=== PATIENT | female | born 1955 | race African-American/Black ===

== ENCOUNTER → 2016-08-10 | Outpatient (CLI) | payer MEDICARE, MEDICAID ==
[~2016-08-10] MED LIST: ALPRAZOLAM0.5 MG PO; BACLOFEN10 MG ORAL; DEPAKENE250 MG/5 M PO; NEURONTIN300 MG ORAL; ZOLOFT20 MG/1 ML ORAL; ZOLOFT50 MG ORAL
--- NOTE | 2016-08-10 16:43 | Diagnostic Imaging Report ---
Indication: SCREEN Technique: Bilateral Craniocaudal and mediolateral oblique views were obtained. Comparison: None. Prior mammograms were taken over 10 years ago, have been purged in the interim. This will therefore serve as a new baseline mammogram Findings: The breasts demonstrate scattered fibroglandular densities. No parenchymal asymmetry nor architectural distortion. There is a cluster of pleomorphic calcifications in the left breast at about the 2:00 position . There is a 5 mm asymmetry in the outer right breast on the craniocaudal view, not definitely visualized on the oblique view although possibly in the upper breast. No skin thickening nor nipple retraction. No axillary adenopathy. . Impression: 2:00 calcifications left breast. Further evaluation with magnification mammography recommended. Note that it is possible that these are dermal calcifications, so tangential view should also be obtained. Outer right breast asymmetry, definitely seen only on the craniocaudal view. Further evaluation with spot compression mammography and ultrasound recommended BI-RADS category zero-needs additional imaging evaluation.
== END | disposition home or self-care (01) ==
LOC: MAMMO 13:04
DX: Z12.31 Encounter for screening mammogram for malignant neoplasm of breast (principal); N64.89 Other specified disorders of breast; N63 Unspecified lump in breast
CPT/HCPCS: 77067

== ENCOUNTER 2018-05-21 13:09 | Outpatient (CLI) | payer MEDICARE ==
[~2018-05-21] VITALS: Ht 162.6 cm; Wt 82.6 kg
[2018-05-22] MEDS ORDERED: CELEBREX200 MG ORAL (13:45)
--- NOTE | 2018-05-22 13:51 | Consultation ---
DATE OF CONSULTATION: 05/21/2018 CONSULTING PHYSICIAN: Jonnie Sanchez M.D. CHIEF COMPLAINT: Screening colonoscopy evaluation. PAST MEDICAL HISTORY: 1. GERD. 2. Depression. 3. IBS. 4. Hemorrhoids. PAST SURGICAL HISTORY: None. MEDICATIONS: Cymbalta, Celebrex. FAMILY HISTORY: Mother had breast cancer. SOCIAL HISTORY: The patient denies any tobacco, alcohol, or drug abuse. ALLERGIES: No known drug allergy. PHYSICAL EXAMINATION: VITAL SIGNS: Temperature 97.6, blood pressure is 120/79, pulse is 84, respirations 20. HEENT: Normocephalic and atraumatic. Sclerae anicteric. NECK: Supple. No obvious evidence of lymphadenopathy. CARDIOVASCULAR: Regular rhythm. Plus S1 and S2. LUNGS: Clear to auscultation bilaterally. ABDOMEN: Positive bowel sounds. Soft and nontender. No rebound. No guarding. No peritoneal sign. EXTREMITIES: No cyanosis, no clubbing, and no edema. ASSESSMENT AND PLAN: Pleasant 62-year-old female, who was referred for screening colonoscopy. We will plan for next week. The patient was given instructions and prep for colonoscopy. The risks and benefits of the procedure were explained to the patient and she agreed, so we will plan for colonoscopy next week. I want to thank Dr. Shekhar Nam for this kind referral. Jonnie Sanchez M.D. DR: TRINA JOB#: [id number] CC: Shekhar Nam M.D.; Fax#: [phone]
== END 2018-05-21 15:09 | disposition home or self-care (01) ==
LOC: PAN 13:09
DX: K21.9 Gastro-esophageal reflux disease without esophagitis (principal); F32.9 Major depressive disorder, single episode, unspecified; K58.9 Irritable bowel syndrome, unspecified
CPT/HCPCS: 99202

== ENCOUNTER 2018-05-30 09:09 | Day surgery (SDC) | payer MEDICARE ==
[~2018-05-30] VITALS: Ht 167.6 cm; Wt 83.0 kg
[2018-05-30] VITALS (8 sets, daily range): BP systolic 104–136; BP diastolic 61–83
[~2018-05-30 09:09] MED LIST changes: +CELEBREX200 MG ORAL
[2018-05-30] MEDS ORDERED: GABAPENTIN600 MG ORAL (10:06)
[2018-05-30] MEDS ORDERED: CELEBREX200 MG ORAL (10:06)
[2018-05-30] MEDS ORDERED: CYMBALTA30 MG ORAL (10:06)
--- NOTE | 2018-05-30 10:58 | Pre-Procedure Note/Attestation ---
Pre-Procedure Note/Attestation Complete Prior to Procedure Planned Procedure: not applicable Procedure Narrative: colonoscopy Indications for Procedure Pre-Operative Diagnosis: screening Attestation I attest that I discussed the nature of the procedure; its benefits; risks and complications; and alternatives (and the risks and benefits of such alternatives ), prior to the procedure, with the patient (or the patient's legal contracts representative). I attest that, if there was a reasonable possibility of needing a blood transfusion, the patient (or the patient's legal contracts representative) was given the [facility] standardized written summary, pursuant to the [place] Blood Safety Act ([place] Health and Safety Code # 1645, as amended). I attest that I re-evaluated the patient just prior to the surgery and that there has been no change in the patient's H&P, except as documented below: Jonnie Sanchez MD May 30, 2018 10:58
[2018-05-30] MEDS ORDERED: Lidocaine 1% MPF 10mg/ml 5ml ONE (11:00)
[2018-05-30] MEDS ORDERED: Propofol 200mg/20ml IV ONE (11:00)
--- NOTE | 2018-05-30 11:08 | Anethesia Preoperative Eval ---
Anesthesia Pre-op PMH/ROS General Date of Evaluation: May 30, 2018 Time of Evaluation: 11:06 Anesthesiologist: Suzette Vee CRNA ASA Score: ASA 2 Mallampati Score Class I : Soft palate, uvula, fauces, pillars visible Class II: Soft palate, uvula, fauces visible Class III: Soft palate, base of uvula visible Class IV: Only hard plate visible Mallampati Classification: Class II Surgeon: Daniel Diagnosis: Colon screening Surgical Procedure: EGD, colonoscopy Anesthesia History: none Family History: no anesthesia problems Allergies: Coded Allergies: NO KNOWN ALLERGIES (Unverified Allergy, Unknown, 02/05/15) Medications: see eMAR Patient NPO?: Yes NPO Date: May 30, 2018 NPO Time: 00:00 Past Medical History Cardiovascular: Denies: HTN, CAD, [place], valve dz, arrhythmia, other Pulmonary: Denies: asthma, COPD, NIMA, other Gastrointestinal/Genitourinary: Denies: GERD, CRI, ESRD, other Neurologic/Psychiatric: Reports: other - chronic pain; Denies: dementia, CVA, depression/anxiety, TIA Endocrine: Denies: DM, hypothyroidism, steroids, other HEENT: Denies: cataract (L), cataract (R), glaucoma, QAWALANGIN (L), QAWALANGIN (R), other Hematology/Immune: Denies: anemia, DVT, bleeding disorder, other Musculoskeletal/Integumentary: Reports: DDD, other - Cervical and lumbar spondylosis, herniated nucleus polposis; Denies: OA, RA, DJD, edema Other: obesity PMH Narrative: as noted above PSxH Narrative: none Anesthesia Pre-op Phys. Exam Physician Exam Last Vital Signs Date Time Temp Pulse Resp B/P (MAP) Pulse Ox O2 Delivery O2 Flow Rate FiO2 05/30/18 10:10 Room Air 05/30/18 10:00 98.1 68 20 136/83 96 Constitutional: NAD Neurologic: CN 2-12 intact Cardiovascular: RRR Respiratory: CTA Gastrointestinal: S/NT/ND Airway Exam Mallampati Score: Class II MO: full Neck: FROM TMD: > 3FB ROM: full Teeth: intact Dentures: no upper, no lower Anesthesia Pre-op A/P Studies Pre-op Studies: EKG - NSR, low voltage, possible infarct Risk Assessment & Plan Assessment: ASA 2, ok to proceed Plan: MAC Status Change Before Surgery: No Pre-Antibiotics Given Within 1 Hr of Incision: No Suzette Vee CRNA May 30, 2018 11:08
[2018-05-30] MEDS ORDERED: fentaNYL 100 mcg/2 mL IV ONE (11:13)
--- NOTE | 2018-05-30 11:14 | Short Stay Surgery H&P ---
History of Present Illness History of Present Illness Chief Complaint see recent office note HPI Maryan Cooper is a 63 year old female who was admitted on for Colon Screening Patient History Allergies: Coded Allergies: NO KNOWN ALLERGIES (Unverified Allergy, Unknown, 02/05/15) Medication History Scheduled Celecoxib* (Celebrex*), 200 MG ORAL DAILY, (Reported) Duloxetine Hcl* (Cymbalta*), 90 MG ORAL DAILY, (Reported) Gabapentin (Neurontin), 300 MG ORAL THREE TIMES A DAY Physical Exam Vital Signs Last Vital Signs Date Time Temp Pulse Resp B/P (MAP) Pulse Ox O2 Delivery O2 Flow Rate FiO2 05/30/18 10:10 Room Air 05/30/18 10:00 98.1 68 20 136/83 96 Plan Attestation Are the patient's medical conditions optimized for surgery? Jonnie Sanchez MD May 30, 2018 11:14
--- NOTE | 2018-05-30 11:42 | Endoscopy Procedure Note ---
Endoscopy Procedure Note General Indication for Procedure: screning colon, GERD Procedures Performed: EGD, colonoscopy Operative Findings/Diagnosis: gastritis, hemorrhoids Specimen: yes Pt Tolerated Procedure Well: Yes Estimated Blood Loss: none Anesthesia Anesthesiologist: pancho Anesthesia: MAC Inserted Devices Implant(s) used?: No Quality Quality of Bowel Preparation: Good Did scope reach the cecum?: Yes Was there any complications?: No GI Core Measures 50 yrs or older w/o bx or poly: No 10yrs. F/U not recommended: Yes If not recommended, why?: Above average risk 10 yrs. F/U needed: Yes 18 years or older w/prev. colo: Yes <3yrs. since last colonoscopy: No Jonnie Sanchez MD May 30, 2018 11:42
--- NOTE | 2018-05-30 11:57 | Immediate Post-Op Evaluation ---
Immediate Post-Op Evalulation Immediate Post-Op Evalulation Procedure: EGD and colonoscopy screening Date of Evaluation: May 30, 2018 Time of Evaluation: 11:47 IV Fluids: 0.9 NS 500 ml Blood Pressure Systolic: 112 Blood Pressure Diastolic: 75 Pulse Rate: 75 Respiratory Rate: 19 O2 Sat by Pulse Oximetry: 100 Temperature (Fahrenheit): 97.0 Pain Score (1-10): 0 Nausea: No Vomiting: No Complications none Patient Status: awake, reacts, patent Hydration Status: adequate Given Within 1 Hr of Incision: Suzette Case CRNA May 30, 2018 11:57
--- NOTE | 2018-05-30 12:06 | 48 Hour Post Anesthesia Eval ---
Post Anesthesia Evaluation Procedure: EGD and colonoscopy screening Date of Evaluation: May 30, 2018 Time of Evaluation: 12:05 Blood Pressure Systolic: 135 0: 78 Pulse Rate: 73 Respiratory Rate: 16 Temperature (Fahrenheit): 97.0 O2 Sat by Pulse Oximetry: 100 Airway: patent Nausea: No Vomiting: No Pain Intensity: 0 Hydration Status: adequate Cardiopulmonary Status: stable Mental Status/LOC: patient returned to baseline Follow-up Care/Observations: per GI Post-Anesthesia Complications: none Suzette Vee CRNA May 30, 2018 12:06
--- NOTE | 2018-05-30 17:45 | Procedure Note ---
DATE OF PROCEDURE: 05/30/2018 SURGEON: Jonnie Sanchez M.D. REFERRING PHYSICIAN: Shekhar Nam M.D. PROCEDURE: Upper endoscopy with biopsy and colonoscopy. ANESTHESIA: Per Suzette, nurse anesthetic. INSTRUMENT: Olympus adult flexible upper endoscope and colonoscope. INDICATIONS: 1. Screening colonoscopy. 2. Chronic GERD. REASON FOR PROCEDURE: The procedure, risks, benefits, and possible consequences, including hemorrhage, aspiration, perforation and infection, and alternative treatments, were explained to the patient/legal guardian by Dr. Jonnie Sanchez and the patient/legal guardian understood and accepted these risks. PROCEDURE IN DETAIL: After informed consent was obtained and the patient was adequately sedated, Olympus upper endoscope was advanced from the mouth into the second portion of the duodenum and retroflexion was performed in the stomach. The patient had 3 cm of hiatal hernia. In the stomach, there was diffuse gastritis. Random biopsy from antrum was obtained to rule out H. pylori infection. Otherwise, the rest of the endoscopic examination grossly looked within normal limits. At this time, the upper endoscope was retrieved and the patient was turned over colonoscopy. First rectal exam was performed, which was positive for internal hemorrhoids. Then, the scope was advanced from the cecum and then subsequently to terminal ileum. Quality of prep was very good. The patient had normal colonoscopy examination without any obvious mass, polyp, diverticula, or any other pathology. Retroflexion of rectum showed evidence of internal hemorrhoids. SUMMARY OF FINDINGS: 1. A 3 cm hiatal hernia. 2. Gastritis, status post biopsy. 3. Internal hemorrhoids. RECOMMENDATIONS: Follow up biopsy results and treat accordingly. I want to thank, Dr. Shekhar Nam, for this kind referral. Jonnie Sanchez M.D. DR: ENRIQUE JOB#: [id number] CC: Shekhar Nam M.D.; Fax#: [phone]
== END 2018-05-30 13:00 | disposition home or self-care (01) ==
LOC: GAS 09:09
DX: Z12.11 Encounter for screening for malignant neoplasm of colon (principal); K21.9 Gastro-esophageal reflux disease without esophagitis; K44.9 Diaphragmatic hernia without obstruction or gangrene; K64.8 Other hemorrhoids; K29.50 Unspecified chronic gastritis without bleeding; M47.9 Spondylosis, unspecified
CPT/HCPCS: 43239; 93005; G0121; J2704; J3010; 94003; 94150

== ENCOUNTER 2018-06-21 13:58 | Outpatient (CLI) | payer MEDICARE ==
[~2018-06-21 13:58] MED LIST changes: +CYMBALTA30 MG ORAL; +GABAPENTIN600 MG ORAL
--- NOTE | 2018-06-21 15:20 | General Progress Note ---
Assessment/Plan Problem List: (1) Gastritis ICD Codes: K29.70 - Gastritis, unspecified, without bleeding SNOMED: 5722183 (2) Chronic constipation ICD Codes: K59.09 - Other constipation SNOMED: 193437048 Assessment/Plan: amitiza plan repeat colon in 5 years Subjective ROS Limited/Unobtainable: Yes Allergies: Coded Allergies: NO KNOWN ALLERGIES (Unverified Allergy, Unknown, 02/05/15) Objective General Appearance: alert EENT: normal ENT inspection Neck: supple Cardiovascular: normal rate Respiratory/Chest: lungs clear Abdomen: normal bowel sounds, non tender, soft Extremities: non-tender Jonnie Sanchez MD Jun 21, 2018 15:20
== END 2018-06-21 15:51 | disposition home or self-care (01) ==
LOC: PAN 13:58
DX: K29.70 Gastritis, unspecified, without bleeding (principal); K59.09 Other constipation
CPT/HCPCS: 99212